=== PATIENT | male | born 1975 | race Caucasian/White ===

== ENCOUNTER 2018-06-14 23:35 | Emergency (ER) | payer SELFPAY | END 2018-06-15 05:29 | disposition short-term general hospital (02) | LOC: FTE 23:35 → E/R 06-15 05:29 | DX: S61.012A Laceration without foreign body of left thumb without damage to nail, initial encounter (principal); F17.210 Nicotine dependence, cigarettes, uncomplicated; W25.XXXA Contact with sharp glass, initial encounter; Y92.9 Unspecified place or not applicable | CPT/HCPCS: 73140; 99283-25 ==